=== PATIENT | female | born 1960 | race Caucasian/White ===

== ENCOUNTER → 2018-04-27 | Outpatient (CLI) | payer OTHER | END | disposition home or self-care (01) | LOC: RAH 10:00 | PROVIDERS: ATTEND Physical Medicine & Rehabilitation | DX: M25.561 Pain in right knee (principal); M25.562 Pain in left knee; M17.11 Unilateral primary osteoarthritis, right knee | CPT/HCPCS: 73560; 73562 ==

== ENCOUNTER → 2018-04-30 | Outpatient (CLI) | payer OTHER, SELFPAY | END | disposition home or self-care (01) | LOC: RAH 14:31 | PROVIDERS: ATTEND Physical Medicine & Rehabilitation | DX: I83.91 Asymptomatic varicose veins of right lower extremity (principal) | CPT/HCPCS: 93971 ==

== ENCOUNTER → 2018-05-27 | Outpatient (CLI) | payer OTHER | END | disposition home or self-care (01) | LOC: SHCH 13:55 | PROVIDERS: ATTEND Internal Medicine Cardiovascular Disease | DX: I87.2 Venous insufficiency (chronic) (peripheral) (principal) | CPT/HCPCS: 93970 ==

== ENCOUNTER → 2018-06-23 | Outpatient (CLI) | payer OTHER, SELFPAY | END | disposition home or self-care (01) | LOC: RAH 07:25 | PROVIDERS: ATTEND Physical Medicine & Rehabilitation | DX: S83.231D Complex tear of medial meniscus, current injury, right knee, subsequent encounter (principal); S83.271D Complex tear of lateral meniscus, current injury, right knee, subsequent encounter; S83.411D Sprain of medial collateral ligament of right knee, subsequent encounter; X58.XXXD Exposure to other specified factors, subsequent encounter; M25.461 Effusion, right knee | CPT/HCPCS: 73721 ==

== ENCOUNTER → 2018-12-22 | Outpatient (CLI) | payer OTHER | END | disposition home or self-care (01) | LOC: RAH 09:05 | PROVIDERS: ATTEND Physical Medicine & Rehabilitation | DX: S83.242A Other tear of medial meniscus, current injury, left knee, initial encounter (principal); S83.282A Other tear of lateral meniscus, current injury, left knee, initial encounter; X58.XXXA Exposure to other specified factors, initial encounter; Y93.89 Activity, other specified; Y92.89 Other specified places as the place of occurrence of the external cause; Y99.8 Other external cause status | CPT/HCPCS: 73721 ==

== ENCOUNTER → 2019-01-14 | Outpatient (CLI) | payer OTHER | END | disposition home or self-care (01) | LOC: SHCH 10:49 | PROVIDERS: ATTEND Internal Medicine Cardiovascular Disease | DX: I87.2 Venous insufficiency (chronic) (peripheral) (principal) | CPT/HCPCS: 93970 ==

== ENCOUNTER → 2019-03-21 | Outpatient (CLI) | payer SELFPAY | END | disposition home or self-care (01) | LOC: SHCH 14:24 | PROVIDERS: ATTEND Internal Medicine Cardiovascular Disease | DX: Z09 Encounter for follow-up examination after completed treatment for conditions other than malignant neoplasm (principal); I82.812 Embolism and thrombosis of superficial veins of left lower extremity | CPT/HCPCS: 93971 ==

== ENCOUNTER → 2019-08-02 | Outpatient (CLI) | payer SELFPAY | END | disposition home or self-care (01) | LOC: RAH 07-15 09:45 | PROVIDERS: ATTEND Physical Medicine & Rehabilitation | DX: M17.11 Unilateral primary osteoarthritis, right knee (principal) | CPT/HCPCS: 73560 ==

== ENCOUNTER → 2021-02-14 | Outpatient (CLI) | payer OTHER | END | disposition home or self-care (01) | LOC: RAH 10:28 | PROVIDERS: ATTEND Physical Medicine & Rehabilitation | DX: M17.0 Bilateral primary osteoarthritis of knee (principal); M85.88 Other specified disorders of bone density and structure, other site ==